=== PATIENT | male | born 1975 | race Hispanic/Latino ===

== ENCOUNTER 2021-07-15 12:15 | Emergency (ER) | payer MEDICARE ==
[2021-07-15] MEDS ORDERED: METOCLOPRAMIDE 10 MG/2 ML INJ IV ONE (13:48)
[2021-07-15] MEDS ORDERED: diphenhydrAMINE 50 MG/ML VIAL IV ONE (13:48)
[2021-07-15] MEDS ORDERED: SODIUM CHLORIDE 0.9% 1000 ML 1,000 ML IV ONE (13:48)
--- NOTE | 2021-07-15 13:56 | Emergency Department Report ---
Blank Doc - Documentation Documentation: 45-year-old male that presents with methamphetamine abuse for the past couple days, difficulty urination. Patient also admitted to suicidal ideation with hearing voices. 1- This is a initial triage assessment/medical screening only. Full assessment and work-up will be completed once the patient is in proper hospital gown, ED bed and in a private room setting. This initial assessment/diagnostic orders/clinical plan/ treatment(s) is/are subject to change based on pt's health status, clinical progression and re-assessment by fellow clinical providers in the ED. Further treatment and workup at subsequent clinical providers discretion. Patient/guardians urged not to elope from ED as their condition may be serious if not clinically assessed and managed. 2-1013 initiated. Patient placed on psych hold orders. 3-RN notified. 4-psych protocol initiated The patient was evaluated in the emergency department for symptoms described in the history of present illness. He/she was evaluated in the context of the global COVID-19 pandemic, which necessitated consideration that the patient might be at risk for infection with the virus that causes COVID-19. Institutional protocols and algorithms that pertain to the evaluation of patients at risk for COVID-19 are in a state of rapid change based on information released by regulatory bodies including the CDC and federal and state organizations. These policies and algorithms were followed during the patient's care in the emergency department. Please note that these policies, procedures and recommendations changed on a rapid basis.
[2021-07-15 14:11] LABS: Basophils # (Auto) 0.1 K/mm3 (0.0-0.1); Basophils % (Auto) 0.9 % (0.0-1.8); Eosinophils # (Auto) 0.4 K/mm3 (0.0-0.4); Eosinophils % (Auto) 5.7 % (0.0-4.3); Lymphocytes # (Auto) 2.1 K/mm3 (1.2-5.4); Lymphocytes % (Auto) 29.9 % (13.4-35.0); Mean Corpuscular HGB Conc 33 % (32-34); Mean Corpuscular Volume 89 fl (84-94); Monocytes # (Auto) 0.5 K/mm3 (0.0-0.8); Monocytes % (Auto) 7.5 % (0.0-7.3); Platelet Count 193 K/mm3 (140-440); Red Blood Count 5.08 M/mm3 (3.65-5.03)
[2021-07-15 14:23] LABS: Blood Urea Nitrogen 8 mg/dL (9-20); Hemolysis Index 30
[2021-07-15 14:26] LABS: Albumin 4.1 g/dL (3.9-5); Bilirubin,Direct 0.2 mg/dL (0-0.2)
[2021-07-15 14:28] LABS: BUN/Creatinine Ratio 11
[2021-07-15] MEDS ORDERED: SODIUM CHLORIDE 0.9% 1000 ML 1,000 ML ONE (14:34)
[2021-07-15] MEDS ORDERED: METOCLOPRAMIDE 10 MG/2 ML INJ ONE (14:34)
[2021-07-15] MEDS ORDERED: diphenhydrAMINE 50 MG/ML VIAL ONE (14:35)
--- NOTE | 2021-07-15 14:39 | Cat Scan Report ---
CT HEAD WITHOUT CONTRAST INDICATION / CLINICAL INFORMATION: headache. TECHNIQUE: All CT scans at this location are performed using CT dose reduction for ALARA by means of automated exposure control. COMPARISON: None available. FINDINGS: HEMORRHAGE: None. EXTRA-AXIAL SPACES: Normal in size and morphology for the patient's age. VENTRICULAR SYSTEM: Normal in size and morphology for the patient's age. CEREBRAL PARENCHYMA: No significant abnormality. No acute territorial infarct. MIDLINE SHIFT / HERNIATION: None. CEREBELLUM / BRAINSTEM: No significant abnormality. ORBITS: Normal as visualized. SOFT TISSUES: No significant abnormality. SKULL: No significant abnormality. PARANASAL SINUSES / MASTOID AIR CELLS: Near complete opacification of left maxillary sinus with thick ening of the pavon. Small mucous retention cysts in the right maxillary sinus. Mastoid air cells are clear. ADDITIONAL FINDINGS: None. IMPRESSION: 1. No acute intracranial abnormality. 2. Findings of chronic left maxillary sinusitis. Signer Name: Erlin Saxena MD Signed: 07/15/2021 2:34 PM Workstation Name: [id number]
--- NOTE | 2021-07-15 14:47 | Cat Scan Report ---
CT ABDOMEN AND PELVIS WITHOUT CONTRAST INDICATION / CLINICAL INFORMATION: right flank pain. TECHNIQUE: Axial CT images were obtained through the abdomen and pelvis without IV contrast. All CT scans at this location are performed using CT dose reduction for ALARA by means of automated exposure control. COMPARISON: None available. FINDINGS: LOWER CHEST: No significant abnormality. LIVER: No significant abnormality. GALLBLADDER: Surgically absent. BILE DUCTS: No significant abnormality. PANCREAS: No significant abnormality. SPLEEN: No significant abnormality. ADRENALS: No significant abnormality. RIGHT KIDNEY / URETER: No significant abnormality. LEFT KIDNEY / URETER: No significant abnormality. STOMACH / SMALL BOWEL: No significant abnormality. COLON: No significant abnormality. APPENDIX: Nonvisualized. PERITONEUM: No free fluid. No free air. No fluid collection. LYMPH NODES: No significant adenopathy. VASCULAR STRUCTURES: No significant abnormality. URINARY BLADDER: No significant abnormality. REPRODUCTIVE ORGANS: No significant abnormality. ADDITIONAL FINDINGS: None. SKELETAL SYSTEM: No significant abnormality. IMPRESSION: Negative for obstruction or localized inflammation. Signer Name: Jona Ambrosio MD Signed: 07/15/2021 2:42 PM Workstation Name: [id number]
[2021-07-15 15:46] LABS: Benzodiazepines Screen,Urine Negative; Cannabinoid Screen,Urine Negative; Cocaine Screen,Urine Negative; Methadone Screen,Urine Negative; Opiate Screen,Urine Negative
[2021-07-15 15:58] LABS: Bilirubin,Urine NEG (Negative); Blood,Urine NEG (Negative); Color,Urine Yellow (Yellow); Mucus,Urine 2+ /HPF; Protein,Urine <15 mg/dL mg/dL (Negative); RBC,Urine < 1.0 /HPF (0.0-6.0)
[2021-07-15 16:02] LABS: Amphetamine Screen,Urine Positive
[2021-07-15] MEDS ORDERED: LORazepam 1 MG TAB PO ONE (17:27)
[2021-07-15] MEDS ORDERED: HALOPERIDOL LACTATE 5 MG/1 ML INJ IM PRN (17:28)
[2021-07-15] MEDS ORDERED: LORazepam 2 MG/ML VIAL IM PRN (17:28)
[2021-07-15] MEDS ORDERED: diphenhydrAMINE 50 MG/ML VIAL IM PRN (17:28)
--- NOTE | 2021-07-15 17:33 | Emergency Department Report ---
HPI - General Chief Complaint: Headache Time Seen by Provider: 07/15/21 13:45 - HPI HPI: Reassessment 6 The patient is a 45-year-old male present with a chief complaint of suicidal homicidal ideation. The patient states he has a history of schizoaffective disorder anxiety came to the emergency department secondary to suicidal ideation and auditory hallucinations. Patient states she is felt suicidal for the past few days but denies any attempts at harming himself. Patient states he has a plan to jump off of a bridge or in front of moving cars. Patient also admits to homicidal ideation stating he wants to hurt everybody. The patient states he has had auditory hallucinations for the past 3 to 4 days telling him to do methamphetamines. Patient admits to methamphetamine use. Patient had complained of a headache earlier ED Past Medical Hx - Past Medical History Hx Hypertension: Yes Hx GERD: Yes Hx Psychiatric Treatment: Yes (Schizoaffective disorder, anxiety) - Surgical History Hx Cholecystectomy: Yes Hx Appendectomy: Yes Additional Surgical History: Right ankle surgery x3 - Family History Family history: no significant - Social History Smoking Status: Current Every Day Smoker (1/2 pack/day) Substance Use Type: Methamphetamines ED Review of Systems ROS: Stated complaint: HEADACHE Other details as noted in HPI Constitutional: no symptoms reported Eyes: denies: eye pain ENT: denies: throat pain Respiratory: no symptoms reported Cardiovascular: denies: chest pain Endocrine: no symptoms reported Gastrointestinal: denies: abdominal pain Genitourinary: denies: testicular pain Musculoskeletal: denies: back pain Neurological: headache Psychiatric: auditory hallucinations, homicidal thoughts, suicidal thoughts Physical Exam - Physical Exam Vital Signs: Vital Signs 07/15/21 12:16 Temperature 97.8 F Pulse Rate 98 H Respiratory 16 Rate Blood Pressure 122/70 [Left] O2 Sat by Pulse 99 Oximetry Physical Exam: GENERAL: The patient is well-developed well-nourished male sleeping on stretcher not appearing to be in acute distress. Patient easily awakened HEENT: Normocephalic. Atraumatic. Extraocular motions are intact. Patient has moist mucous membranes. NECK: Supple. Trachea midline CHEST/LUNGS: Clear to auscultation. There is no respiratory distress noted. HEART/CARDIOVASCULAR: Regular. There is no tachycardia. There is no gallop rub or murmur. ABDOMEN: Abdomen is soft, nontender. Patient has normal bowel sounds. There is no abdominal distention. SKIN: There is no rash. There is no edema. There is no diaphoresis. NEURO: The patient is awake, alert, and oriented. The patient is cooperative. The patient has no focal neurologic deficits. The patient has normal speech and gait. GCS 15 MUSCULOSKELETAL: There is no evidence of acute injury. ED Course Vital Signs 07/15/21 12:16 Temperature 97.8 F Pulse Rate 98 H Respiratory 16 Rate Blood Pressure 122/70 [Left] O2 Sat by Pulse 99 Oximetry ED Medical Decision Making - Lab Data Result diagrams: 07/15/21 13:49 07/15/21 13:49 Laboratory Tests 07/15/21 07/15/21 07/15/21 13:49 13:49 13:49 WBC 6.9 RBC 5.08 H Hgb 15.0 Hct 45.0 MCV 89 MCH 30 MCHC 33 RDW 15.0 Plt Count 193 Lymph % (Auto) 29.9 [place] % (Auto) 7.5 H Eos % (Auto) 5.7 H Baso % (Auto) 0.9 Lymph # (Auto) 2.1 [place] # (Auto) 0.5 Eos # (Auto) 0.4 Baso # (Auto) 0.1 Seg Neutrophils % 56.0 Seg Neutrophils # 3.8 Sodium 138 Potassium 3.6 Chloride 102.2 Carbon Dioxide 20 L Anion Gap 19 BUN 8 L Creatinine 0.7 L Estimated GFR > 60 BUN/Creatinine Ratio 11 Glucose 84 Calcium 9.0 Total Bilirubin Direct Bilirubin Indirect Bilirubin AST ALT Alkaline Phosphatase Total Protein Albumin Albumin/Globulin Ratio Urine Color Urine Turbidity Urine pH Ur Specific [place] Urine Protein Urine Glucose (UA) Urine Ketones Urine Blood Urine Nitrite Urine Bilirubin Urine Urobilinogen Ur Leukocyte Esterase Urine WBC (Auto) Urine RBC (Auto) Urine Mucus Salicylates Urine Opiates Screen Urine Methadone Screen Acetaminophen Ur Barbiturates Screen Ur Phencyclidine Scrn Ur Amphetamines Screen U Benzodiazepines Scrn Urine Cocaine Screen U Marijuana (THC) Screen Drugs of Abuse Note Plasma/Serum Alcohol < 0.01 07/15/21 07/15/21 07/15/21 13:49 13:51 13:51 WBC RBC Hgb Hct MCV MCH MCHC RDW Plt Count Lymph % (Auto) [place] % (Auto) Eos % (Auto) Baso % (Auto) Lymph # (Auto) [place] # (Auto) Eos # (Auto) Baso # (Auto) Seg Neutrophils % Seg Neutrophils # Sodium Potassium Chloride Carbon Dioxide Anion Gap BUN Creatinine Estimated GFR BUN/Creatinine Ratio Glucose Calcium Total Bilirubin 0.90 Direct Bilirubin 0.2 Indirect Bilirubin 0.7 AST 23 ALT 21 Alkaline Phosphatase 121 Total Protein 7.3 Albumin 4.1 Albumin/Globulin Ratio 1.3 Urine Color Yellow Urine Turbidity Clear Urine pH 6.0 Ur Specific [place] 1.011 Urine Protein <15 mg/dl Urine Glucose (UA) Neg Urine Ketones Neg Urine Blood Neg Urine Nitrite Neg Urine Bilirubin Neg Urine Urobilinogen 2.0 Ur Leukocyte Esterase Neg Urine WBC (Auto) 2.0 Urine RBC (Auto) < 1.0 Urine Mucus 2+ Salicylates Urine Opiates Screen Negative Urine Methadone Screen Negative Acetaminophen Ur Barbiturates Screen Negative Ur Phencyclidine Scrn Negative Ur Amphetamines Screen Positive U Benzodiazepines Scrn Negative Urine Cocaine Screen Negative U Marijuana (THC) Screen Negative Drugs of Abuse Note Disclamer Plasma/Serum Alcohol 07/15/21 07/15/21 14:01 14:01 WBC RBC Hgb Hct MCV MCH MCHC RDW Plt Count Lymph % (Auto) [place] % (Auto) Eos % (Auto) Baso % (Auto) Lymph # (Auto) [place] # (Auto) Eos # (Auto) Baso # (Auto) Seg Neutrophils % Seg Neutrophils # Sodium Potassium Chloride Carbon Dioxide Anion Gap BUN Creatinine Estimated GFR BUN/Creatinine Ratio Glucose Calcium Total Bilirubin Direct Bilirubin Indirect Bilirubin AST ALT Alkaline Phosphatase Total Protein Albumin Albumin/Globulin Ratio Urine Color Urine Turbidity Urine pH Ur Specific [place] Urine Protein Urine Glucose (UA) Urine Ketones Urine Blood Urine Nitrite Urine Bilirubin Urine Urobilinogen Ur Leukocyte Esterase Urine WBC (Auto) Urine RBC (Auto) Urine Mucus Salicylates < 0.3 L Urine Opiates Screen Urine Methadone Screen Acetaminophen 5.0 L Ur Barbiturates Screen Ur Phencyclidine Scrn Ur Amphetamines Screen U Benzodiazepines Scrn Urine Cocaine Screen U Marijuana (THC) Screen Drugs of Abuse Note Plasma/Serum Alcohol - Differential Diagnosis Suicidal ideation, homicidal ideation, substance abuse Critical care attestation.: If time is entered above; I have spent that time in minutes in the direct care of this critically ill patient, excluding procedure time. ED Disposition Clinical Impression: Suicidal ideation, Homicidal ideation, Methamphetamine abuse Disposition: [address] [place] [address] Is pt being admited?: No Does the pt Need Aspirin: No Condition: Stable Referrals: PRIMARY CARE,MD [Primary Care Provider] - 3-5 Days
--- NOTE | 2021-07-16 12:58 | Consultation ---
History of Present Illness - Reason for Consult Consult date: 07/16/21 Reason for consult: hallucinations - History of Present Psychiatric Illness The patient was seen today. He is fidgety. He says he's hearing voices that he can't understand. He says yesterday they were telling him to kill himself. The patient says he tried meth for the first time. He says "I know the voices are not from that because I was hearing them before." I says "I feel very anxious." The patient also states that he usually takes olanzapine and has been off for a few days. The nurse says she had to medicate the patient because he was having anxiety and agitation due to severe hallucinations. PAST PSYCHIATRIC HISTORY: Diagnoses: Schizoaffective Suicide attempts or Self-harm behavior: Denies Prior psychiatric hospitalizations: Denies Substance Abuse history: Denies Previous psychiatric medications tried: Olanzapine Outpatient treatment: Denies PAST MEDICAL HISTORY: None reported or document Family Psychiatric History: None reported or documented SOCIAL HISTORY Marital Status: Single Living Arrangements: homeless Employment Status: Disabled Access to guns/weapons: Denies Education: History of Abuse: Denies Legal History: Denies REVIEW OF SYSTEMS Constitutional: Negative for weight loss ENT: Negative for stridor Respiratory: Negative for cough or hemoptysis All other systems reviewed and are negative MENTAL STATUS EXAMINATION General Appearance and Behavior: Age appropriate, good hygiene, wearing appropriate clothes. anxious, fidgety Cooperation: cooperative Psychomotor Behavior: Psychomotor normal Mood: anxious Affect and affective range: congruent with stated mood Thought Process: goal directed Thought Content: hallucinations Speech: normal tone and pace Suicidal Ideation: Denies Homicidal Ideation: Denies Hallucinations: Auditory Delusions: None elicited Impulse Control: Limited Insight and Judgment: Limited Memory: limited Attention: Attentive Orientation: alert and oriented Assessment and Plan (1) Schizophrenia (2) Methamphetamine Induced Mood Disorder Treatment Plan 1013 Olanzapine 10mg po daily Vistaril 25mg po q6h prn anxiety Sitter: per primary Medical: per primary Disposition: Recommend acute psychiatric inpatient treatment Will follow. Thanks Case staffed with Dr. Crum Medications and Allergies Allergies Allergy/AdvReac Type Severity Reaction Status Date / Time bee venom protein (honey bee) AdvReac Unknown Verified 07/15/21 12:18 prochlorperazine AdvReac Unknown Verified 07/15/21 12:18 [From Compazine] Active Meds: Active Medications Diphenhydramine HCl (Diphenhydramine 50 Mg/Ml Vial) 50 mg IM Q6H PRN PRN Reason: Agitation Haloperidol Lactate (Haloperidol Lactate 5 Mg/1 Ml Inj) 10 mg IM Q8H PRN PRN Reason: Agitation Lorazepam (Lorazepam 2 Mg/Ml Vial) 2 mg IM Q8H PRN PRN Reason: Agitation Mental Status Exam - Vital signs Last Vital Signs Temp 97.8 F 07/15/21 12:16 Pulse 98 H 07/15/21 12:16 Resp 16 07/15/21 12:16 BP 122/70 07/15/21 12:16 Pulse Ox 98 07/16/21 09:06 Results Result Diagrams: 07/15/21 13:49 07/15/21 13:49 Abnormal lab results 07/15/21 07/15/21 07/15/21 Range/Units 13:49 13:49 14:01 RBC 5.08 H (3.65-5.03) M/mm3 [place] % (Auto) 7.5 H (0.0-7.3) % Eos % (Auto) 5.7 H (0.0-4.3) % Carbon Dioxide 20 L (22-30) mmol/L BUN 8 L (9-20) mg/dL Creatinine 0.7 L (0.8-1.3) mg/dL Salicylates < 0.3 L (2.8-20.0) mg/dL Acetaminophen (10.0-30.0) ug/mL 07/15/21 Range/Units 14:01 RBC (3.65-5.03) M/mm3 [place] % (Auto) (0.0-7.3) % Eos % (Auto) (0.0-4.3) % Carbon Dioxide (22-30) mmol/L BUN (9-20) mg/dL Creatinine (0.8-1.3) mg/dL Salicylates (2.8-20.0) mg/dL Acetaminophen 5.0 L (10.0-30.0) ug/mL All other labs normal.
[2021-07-16] MEDS ORDERED: hydrOXYzine PAMOATE 25 MG CAP PO PRN (13:30)
--- NOTE | 2021-07-16 17:45 | Emergency Department Report ---
Blank Doc - Documentation Documentation: 45-year-old male with psychosis and methamphetamine abuse medically cleared. Chart and vital signs reviewed. Patient accepted and awaiting transfer to psychiatric facility
[2021-07-17 00:49] VITALS: BP 100/50
== END 2021-07-17 00:48 ==
LOC: ED 12:15
DX: R45.851 Suicidal ideations (principal); R45.850 Homicidal ideations; F19.10 Other psychoactive substance abuse, uncomplicated; I10 Essential (primary) hypertension; K21.9 Gastro-esophageal reflux disease without esophagitis; F20.9 Schizophrenia, unspecified; Z90.49 Acquired absence of other specified parts of digestive tract; Z98.890 Other specified postprocedural states; Z88.8 Allergy status to other drugs, medicaments and biological substances
CPT/HCPCS: 36415; 70450; 74176; 80048; 80076; 80307; 81001; 85025; 96372; 99285; J1200; J1630; J2060; J2765; J7030; 80320; Q0162; G0480